=== PATIENT | female | born 1950 | race Caucasian/White ===

== ENCOUNTER 2016-07-13 16:05 | Outpatient (CLI) | payer OTHER ==
--- NOTE | 2016-07-13 17:52 | DIAGNOSTIC IMAGING REPORT ---
PROCEDURE: MR LOWER EXT JOINT WO CONT-RT INDICATION: RT KNEE OA TECHNIQUE: PD axial, T1 and PD fat sat coronal, PD and PD fat sat sagittal, and sagittal oblique STIR sequence through the ACL. COMPARISON: None. FINDINGS: Menisci: Complex tearing of the entire lateral meniscus with a probable avulsion at the posterior root. There may be a meniscal fragment flipped into the intercondylar notch. There is widening of the meniscal capsular distance behind the lateral condyle for length of about 2 cm suggestive of a meniscocapsular separation. Complex tearing and fragmentation involving most of the medial meniscus, particularly body and posterior horn. Ligaments: Intermediate signal involving much of the anterior cruciate ligament. Some of the proximal fibers follow the expected course, but the distal fibers appear shallow and there is decreased space in the intercondylar notch secondary to anterior and medial subluxation of the femur and tibia. The posterior cruciate ligament appears grossly intact. Superficial MCL fibers are intact. Deep fibers are not well seen. Attenuation and intermediate signal involving the origin of the popliteus tendon. The lateral collateral ligament complex otherwise appears intact. Extensor mechanism: Normal. Osseous structures and articular surfaces: Mild intra medial subluxation of the distal femur and tibia. A large medial and lateral compartment marginal spurs. Subcortical cystic change along the lateral aspect of the posterior medial tibial plateau and mildly in the intracondylar notch at the ACL insertion. Fairly large Full-thickness cartilage defect involving the posterior aspect within the lateral compartment and the femoral and tibial surfaces. No full-thickness cartilage fissuring along the medial femoral condylar weightbearing surface. Moderate to severe cartilage thinning along the anterior medial compartment. Moderate diffuse cartilage thinning in the patellofemoral compartment. Fluid, soft tissues, and joint space: Moderate to large reactive joint effusion. Bilobed Carolina's cyst in the medial popliteal fossa. The superficial component measures about 5.4 cm in length. Moderate fluid in the prepatellar and infrapatellar bursa. No pes anserine bursitis. Decreased muscular bulk diffusely. Neurovascular bundle appears within normal limits. IMPRESSION: 1. Extensive medial and lateral meniscal tearing including possible intercondylar notch meniscal fragment (bucket-handle tear of the lateral meniscus), possible meniscocapsular separation involving the lateral meniscus, and posterior root avulsion of the lateral meniscus. 2. High grade strain of the anterior cruciate ligament 3. Tendinopathy of the popliteus tendon origin. 4. 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 5. Moderate to large reactive joint effusion. Prepatellar and infrapatellar bursitis.
== END 2016-07-13 23:00 ==
LOC: MRI SRH 16:05
DX: S83.281A Other tear of lateral meniscus, current injury, right knee, initial encounter (principal); S83.241A Other tear of medial meniscus, current injury, right knee, initial encounter; S83.511A Sprain of anterior cruciate ligament of right knee, initial encounter; M94.261 Chondromalacia, right knee; M25.461 Effusion, right knee; M70.41 Prepatellar bursitis, right knee

== ENCOUNTER 2016-10-20 16:42 | Outpatient (CLI) | payer OTHER ==
--- NOTE | 2016-10-20 17:30 | DIAGNOSTIC IMAGING REPORT ---
PROCEDURE: XR CHEST 2 VIEW INDICATION: Preop right knee replacement. TECHNIQUE: PA and lateral views. COMPARISON: None. FINDINGS: Lungs are clear. Heart and mediastinum are normal. Thorax is normal. IMPRESSION: 1. Negative chest.
== END 2016-10-20 23:00 | disposition home or self-care (01) ==
LOC: RT SRH 16:42
DX: Z01.818 Encounter for other preprocedural examination (principal); M17.11 Unilateral primary osteoarthritis, right knee

== ENCOUNTER 2016-11-01 09:50 | Inpatient (IN) | payer OTHER ==
[2016-11-01] VITALS (7 sets, daily range): BP systolic 136–153; BP diastolic 56–77
[~2016-11-01] VITALS: Ht 167.6 cm; Wt 85.9 kg
[~2016-11-01 09:50] MED LIST: ATORVASTATIN CA20 MG PO; HYDR PO; IRBESARTAN PO; LEVOTHYROXINE25 MCG PO; TRAMADOL HCL50 MG PO
--- NOTE | 2016-11-01 10:48 | NUR ---
PREOP INSTRUCTIONS GIVEN TO PATIENT. QUESTIONS ANSWERED. PATIENT VERBALIZES UNDERSTANDING. CONSENT CONFIRMED. EXTREMITY MARKED. JUAN R/SCD ON. BS 89. PATIENT RESTING COMFORTABLY. KB
--- NOTE | 2016-11-01 15:28 | Postoperative Progress Note ---
Postop Progress Note Preoperate Diagnosis: OA right knee Postoperative Diagnosis: Same Surgeon: Song Anderson MD Anesthesia: General ETT Findings: OA right knee Procedure: Right TKA Complications? No Condition: Stable EBL: 200cc Blood Administered: 0 Specimen(s) removed? Yes Specimen removed/disposition: Bone and tissue right knee Grafts or Implants? Yes Graft/Implant type: Right TKA . (See nursing notes for details of grafts/implants)
--- NOTE | 2016-11-01 17:18 | DIAGNOSTIC IMAGING REPORT ---
PROCEDURE: XR KNEE 1 OR 2 VIEWS - RIGHT INDICATION: post-op right tka TECHNIQUE: Two-views COMPARISON: Bilateral knee films 01/07/2015 FINDINGS: The patient is status post a total knee replacement on the right. The components are in good position. IMPRESSION: 1. Status post right total knee replacement
--- NOTE | 2016-11-01 18:13 | NUR ---
PT IS AWAKE AND ALERT PRIOR D/C FROM PACU. VSS. PT PAIN LEVEL CAME DOWN FROM SEVERE TO MILD AFTER PAIN MEDICATION ADMINISTRATION. VSS. RIGHT LEG IS ELEVATED ON TWO PILLOWS, ICE BAG PLACED ON PT'S RIGHT KNEE PER MD ORDER. RIGHT KNEE DRESSING IS CLEAN AND DRY. RIGHT KNEE X-RAY WAS DONE IN PACU. REPORT GIVEN TO GANESH.
--- NOTE | 2016-11-01 19:53 | NUR ---
LATE ENTRY: PT ARRIVED TO FLOOR AROUND 1725 IN BED. DENIED NAUSEA AND SMALL AMOUNT OF PAIN. ALERT AND ORIENTED, ABLE TO ANSWER QUESTIONS WELL. MONITORING BP DUE TO ELEVATION DURING SURGERY, CURRENTLY WNL. ENCOURAGED TO ROM AFFECTED LEG TO PROMOTE EXPIRIL. PT NEEDS PAIN MEDS TO MOVE LEG. CURRENTLY ELEVATED AND ICE ON LEG. CDI. ATE DINNER WITHOUT ISSUE AND IS DRINKING FLUIDS. NO OTHER ISSUES AT THIS TIME.
[2016-11-02] VITALS (7 sets, daily range): BP systolic 140–168; BP diastolic 67–721
--- NOTE | 2016-11-02 01:00 | NUR ---
Patient was reassured by staff that she will be kept on round the clock IV acetaminophen and PRN pain med as much as possible for her to be able to moove her right knee.
--- NOTE | 2016-11-02 08:19 | Progress Note ---
Subjective General Better, less pain today. No other c/o. VSS WBC 13.8 Hgb 10.6 FBS 126 NMV intact. Bandage is clean and dry OOB with PT today.
[2016-11-02] MEDS ORDERED: OXAYDO5 MG PO (08:20)
[2016-11-02] MEDS ORDERED: ASPIRIN325 MG PO (08:21)
--- NOTE | 2016-11-02 08:35 | NUR ---
RECEIVED PT IN BED, ON HIGH FOLWER'S POSITION, AWAKE, ALERT, ORIENTED, COHERENT, COOPERATIVE. V/S TAKEN AND RECORDED. ASSESSMENT DONE. PT COMPLAINT OF RK PAIN 7/10 LEVEL. AND NAUSEA. DUE MEDS GIVEN. DENIES CHEST PAIN AT THIS TIME. TOLERATED HER MEALS WELL. SEEN AND EXAMINED BY DR JAMESON, WITH ORDERS MADE AND CARRIED OUT. PLAN OF CARE INFORMED PT, P.T WILL WORK WITH HR TODAY. PT UNDERSTOOD. FLUSHED FACE NOTED. AFEBRILE. DENIES ITCHINESS. IS. INSTRUC. NEEDS ATTENDED.
--- NOTE | 2016-11-02 13:20 | NUR ---
I discussed with the patient their current medications, possible side effects, and answered questions. VIVIANE
--- NOTE | 2016-11-02 23:26 | NUR ---
VSS. A&OX4. AMBULATING WITH WALKER AND SBA. PAIN MODERATELY CONTROLLED WITH OXYCODONE AND DILAUDID IV FOR BREAKTHROUGH PAIN. WCTM.
[2016-11-03] VITALS (7 sets, daily range): BP systolic 131–177; BP diastolic 72–85
--- NOTE | 2016-11-03 01:36 | NUR ---
PT A&O X3, ABLE TO MAKE NEEDS KNOWN, PLEASANT AND COOPERATIVE. DRESSING OVER SURGICAL SITE ON RLE CDI, NO PAIN EXACERBATION WITH PALPATION, C/O R KNEE ACHING 10/31, PRN OXYCODONE WITH DILAUDID ADMINISTERED; TP COMMENTED THAT SHE MIGHT HAVE "OVERDONE IT" WITH PT EARLIER IN DAY. DENIES ANY NUMBNESS OR TINGLING IN RLE, PEDAL PULSES PALPABLE BILATERALLY. LS CTA, ON RA. BT PRESENT IN ALL GARG, BUT PT DENIES BM POST SURGERY. IV IN L WRIST IN PLACE AND PATENT BUT A LITTLE "TENDER" WHEN ANALGESIC ADMINISTERED AND WITH FLUSH. VSS.
--- NOTE | 2016-11-03 08:02 | Progress Note ---
Subjective General VS Afebrile BP elevated BP med was apparently changed by the pharmacy to Losartan 50mg/day and she now has elevation of her BP. She is having some pain, but says it has been reasonably well controlled. i will change to Losartan 50mg BID. Bandage is clean and dry. Making satisfactory progress with PT - will continue today.
--- NOTE | 2016-11-03 08:18 | NUR ---
PATIENT SITTING UP IN CHAIR FOR BREAKFAST. SBA WITH FWW, TOOK 2 STEPS TO CHAIR. DID WELL WITH THIS BUT STATES 7/10 AND REQUESTED PAIN MEDICATION. DILAUDID 1 MG GIVEN WITH GOOD EFFECT. SEE SHIFT ASSESSMENT FOR FURTHER DETAILS.
--- NOTE | 2016-11-03 11:22 | NUR ---
pt supine in bed and agreeable to skilled PT intervention. pt completed supine to sit SBA, STS using a FWW SBA and ambulated 1x20ft SBA and then 1x75ft SBA in the hallway. pt stated she was sore was yesterday. Education on listening to body and making sure to take breaks between ambulation and exercises. pt should walk 1-2x more today in the hallway <100ft each. pt is safe to d/c home to friend's once medically stable.
--- NOTE | 2016-11-03 13:23 | NUR ---
NUTRITION NOTE: Pt s/p R TKA 11/01. General diet in place and pt eating ~90-100% of meals without issues per report. Rev'd meds and labs. RD to follow up with complete assessment per protocol. Pt appears to be at low nutritional risk at this time.
[2016-11-04 02:14] VITALS: BP 134/67
--- NOTE | 2016-11-04 06:18 | NUR ---
MAINTAINED PTS PAIN LEVEL AT A TOLERABLE LEVEL OVERNIGHT WITH 10MG OXYCODONE PO Q4 AND DILAUDID PRN IN BETWEEN DOSES. PT REPORTS THAT HER PAIN IS A LITTLE LOWER THIS MORNING. SHE WAS UP TO THE BATHROOM MULTIPLE TIMES THROUGHOUT THE NIGHT, REPORTS SHE IS UNABLE TO HAVE A BOWEL MOVEMENT YET BUT THINKS SHE WILL BE ABLE TO SOON. PRUNE JUICE GIVEN. LEG ELEVATED AND ICED THROUGHOUT THE NIGHT. IV SITE IN LEFT WRIST WENT BAD SO NEW IV WAS STARTED IN RIGHT FOREARM.
[2016-11-04 06:39] VITALS: BP 155/77
--- NOTE | 2016-11-04 09:35 | Progress Note ---
Late Entry Date/Time Late Entry Date and Time POD #[address] Anderson. No new complains. patient in good mood and would like to go home today Vital sign stable. Dressing is clean/dry/intact. Distal pulse is present. distal motor and sensory intact Patient is medically stable to go home today Date of visit:11/04/2016 Time of visit:0830
--- NOTE | 2016-11-04 10:04 | Discharge Summary ---
Discharge Summary Report Admit Date 11/01/16 Discharge Date 11/04/16 Admission Diagnosis Right knee osteoarthritis Discharge Diagnosis Right Total Knee arthroplasty Brief History alert and oriented 66 y/o female with a history of right knee pain due to osteoarthritis, who tried conservative treatment, but failed. Right Total knee arthroplasty was recommended. Risks and benefit were discussed with the patient, and she opted to go ahead with surgery. Patient had surgery on 11/01/2016, and it was uneventful. Her hospital stay was also uneventful. Hospital Course patient's hospital course was uneventful General Appearance Alert, Oriented X3, Cooperative, No acute distress HEENT Atraumatic Lungs Clear to auscultation Cardiovascular Regular Rate Abdomen No tenderness Skin No Rashes, No Breakdown Neurological Normal speech, Sensation intact Psych/Mental Status Mental status NL, Mood NL Discharge Instructions/Meds Continue weight bearing as tolerated. Follow exercise routine by PT. Dressing change prn. Follow up at clinic with Dr. Reyez(with original scheduled follow up ). pain meds prn. OK to continue with home meds
--- NOTE | 2016-11-04 10:09 | Provider's Discharge Care Plan ---
Problem, Goal, Plan Problem List 1. Knee joint replacement status Goals: Improve function, Increase independence Instructions: Follow up as directed, Increase activity level, Take meds as directed
--- NOTE | 2016-11-04 10:35 | NUR ---
pt sitting in chair upon entering room. pt completed flexion stretch while seated holding a tolerable for stretch for 30 sec at a time. Repeated 3x. pt completed sit to stand Mod I using a FWW. pt transferred to bed. Sit to supine Mod I. pt completed quad sets, ankle pumps and attempted SAQ but had difficulty with coordination of movement. x10 reps each. Education was given on stair negotiation but pt has a ramp into her home. pt states she feels safe going home and plans to go to a friends house until Monday and then will be back at her residence for remainder of healing. pt is safe to d/c home with HHPT once medically cleared.
--- NOTE | 2016-11-04 14:04 | NUR ---
patient discharged with all of her belongings. states she understands discharge education. iv dc'd wnl. family friend came to pick her up in a personal car. she left at 1320.
== END 2016-11-04 13:20 | disposition home health service (06) | DRG 470 ==
LOC: SCU SRH 09:50 → U SRH 12:00 → ACUTE2 SRH 17:23
PROVIDERS: ADMIT Orthopaedic Surgery
PROC: 0SRC0J9 Replacement of Right Knee Joint with Synthetic Substitute, Cemented, Open Approach (ICD-10-PCS; principal; 2016-11-01 12:00)
DX: M17.11 Unilateral primary osteoarthritis, right knee (principal); I10 Essential (primary) hypertension; E03.9 Hypothyroidism, unspecified; E78.00 Pure hypercholesterolemia, unspecified; M32.9 Systemic lupus erythematosus, unspecified; Z87.891 Personal history of nicotine dependence